=== PATIENT | male | born 1955 | race African-American/Black ===

== ENCOUNTER → 2016-12-13 | Outpatient (CLI) | payer BC | LOC: FIMAGING 11:44 | PROVIDERS: ATTEND Family Medicine Sports Medicine | DX: R20.0 Anesthesia of skin (principal) ==

== ENCOUNTER → 2017-02-05 | Outpatient (CLI) | payer BC ==
[~2017-02-05] MED LIST: GADOBUTROL 10 ML VIAL IVP ONE
== END ==
LOC: FIMAGING 07:51
PROVIDERS: ATTEND Family Medicine Sports Medicine
DX: D18.09 Hemangioma of other sites (principal); M51.24 Other intervertebral disc displacement, thoracic region
CPT/HCPCS: A9585